=== PATIENT | male | born 1985 | race Caucasian/White ===

== ENCOUNTER 2017-04-30 10:46 | Emergency (ER) | payer OTHER ==
[~2017-04-30] VITALS: Ht 172.7 cm; Wt 75.1 kg
[~2017-04-30 10:46] MED LIST: CYCL-36 PO; IBUP-238 PO; LORT5TAB PO; Z.0.NO CURRENT MEDS
[2017-04-30 10:51] VITALS: BP 151/74; PULSE 71; RESP 16; TEMP 98.4; O2SAT 98
--- NOTE | 2017-04-30 11:17 | PD ---
HPI Chief Complaint: Musculoskeletal Complaint Time Seen by Provider: 10:59 Travel History International Travel<30 days: No Contact w/Intl Traveler<30days: No Traveled to known affect area: No History of Present Illness HPI 32-year-old male presents the emergency department with painless prepatellar bursitis for the last several weeks. Patient is requesting some way to reduce it. Patient has not had issues with walking or exercising. It is not erythematous or painful. Patient has tried [id number] NSAIDs without improvement. He has no known drug allergies. PFSH Past Medical History Diminished Hearing: No ?: Not Social History Alcohol Use: Yes (VERY OCCASIONAL) Tobacco Use: No Substance Use: No Allergies-Medications (Allergen,Severity, Reaction): Coded Allergies: No Known Allergies (Verified Allergy, Unknown, 04/30/17) Reported Meds & Prescriptions Reported Meds & Active Scripts Active Review of Systems Except as stated in HPI: all other systems reviewed are Neg General / Constitutional: No: Fever Eyes: No: Visual changes HENT: No: Headaches Cardiovascular: No: Chest Pain or Discomfort Respiratory: No: Shortness of Breath Gastrointestinal: No: Abdominal Pain Genitourinary: No: Dysuria Musculoskeletal: Positive: Edema, No: Pain Skin: No Rash Neurologic: No: Weakness Psychiatric: No: Depression Endocrine: No: Polydipsia Hematologic/Lymphatic: No: Easy Bruising Physical Exam Narrative GENERAL: Patient is in no acute distress. SKIN: Warm and dry. Normal color. Normal turgor. No erythema. No rash. HEAD: Atraumatic. Normocephalic. EYES: Pupils equal and round. No scleral icterus. No injection or drainage. ENT: No nasal bleeding or discharge. Mucous membranes pink and moist. NECK: Trachea midline. No JVD. CARDIOVASCULAR: Regular rate and rhythm. RESPIRATORY: No accessory muscle use. Clear to auscultation. Breath sounds equal bilaterally. MUSCULOSKELETAL: Extremities without clubbing, cyanosis, or edema. No obvious deformities. Patient has obvious large fluctuant right prepatellar bursitis. There is no sign of infection. There is no laxity. There is no decreased strength. NEUROLOGICAL: Awake and alert. No obvious cranial nerve deficits. Motor grossly within normal limits. Five out of 5 muscle strength in the arms and legs. Normal speech. PSYCHIATRIC: Appropriate mood and affect; insight and judgment normal. Data Data Last Documented VS Vital Signs Date Time Temp Pulse Resp B/P (MAP) Pulse Ox O2 Delivery O2 Flow Rate FiO2 04/30/17 10:51 98.4 71 16 151/74 (99) 98 Orders Orders Ed Discharge Order (04/30/17 11:17) MDM Medical Decision Making Medical Screen Exam Complete: Yes Emergency Medical Condition: Yes Differential Diagnosis Right knee prepatellar bursitis. Aseptic bursitis. Knee effusion. Narrative Course Patient discussed with Dr. Hernandez recommends compression, ibuprofen, ice, and decreased activity. Patient follow-up with Dr. Trotter, the orthopedic on-call if symptoms persist. Diagnosis Primary Impression: Prepatellar bursitis, right knee Referrals: Christian Trotter MD Patient Instructions: General Instructions Additional Instructions: Patient discussed with Dr. Hernandez recommends compression, ibuprofen, ice, and decreased activity. Patient follow-up with Dr. Trotter, the orthopedic on-call if symptoms persist. Med/Other Pt SpecificInfo: No Meds Exist/No RX given Disposition: 01 DISCHARGE HOME Condition: Stable Wm Cruz Apr 30, 2017 11:17
== END 2017-04-30 11:31 | disposition home or self-care (01) ==
LOC: PHEFT 10:46
DX: M70.41 Prepatellar bursitis, right knee (principal)
CPT/HCPCS: 99282